=== PATIENT | male | born 1985 | race Caucasian/White ===

== ENCOUNTER 2021-05-18 09:08 | Emergency (ER) | payer SELFPAY ==
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
[2021-05-18] MEDS ORDERED: Ketorolac 60 MG/2 ML SDV IM ONE (11:15)
--- NOTE | 2021-05-18 11:22 | CR ---
DATE OF SERVICE: 05/18/21 CLINICAL DATA: injury to R lower rib cage PA CHEST AND RIGHT RIBS: The heart size is normal. The lungs are clear. No pneumothorax. No pleural effusions. No rib abnormalities. No displaced fractures. No lytic or blastic bone lesions. [id number] [facility]
[2021-05-18] MEDS ORDERED: Ketorolac 60 MG/2 ML SDV ONE (11:31)
== END 2021-05-18 11:52 | disposition home or self-care (01) ==
LOC: LB.ED 09:08
DX: R10.11 Right upper quadrant pain (principal)
CPT/HCPCS: 36415; 71101; 80053; 81003; 85027; 96372; 99283; J1885